=== PATIENT | male | born 1960 | race Caucasian/White ===

== ENCOUNTER 2021-06-17 10:04 | Emergency (ER) | payer OTHER, SELFPAY ==
[2021-06-17] VITALS (7 sets, daily range): BP systolic 136–147; BP diastolic 99–107; PULSE 91–125; RESP 14–21; TEMP 36.4; O2SAT 91–98
--- NOTE | ~2021-06-17 | CT_ITS ---
EXAMINATION: CT brain wo con DATE: 06/17/2021 10:25 INDICATION: Seizure. History of traumatic brain injury with epilepsy. TECHNIQUE: Computed tomography (CT) of the head was performed without intravenous contrast. The dose- length product was 983.67 mGy-cm. Automated exposure control and iterative reconstruction technique w ere employed. COMPARISON: CT dated 02/28/2019 FINDINGS: There is a large chronic left MCA distribution infarction with encephalomalacia. There is a chronic left thalamic infarction. There is intracranial atherosclerosis. No ventriculomegaly or midl ine shift. No acute infarction, hemorrhage or mass. Paranasal sinuses and mastoids are pneumatized. N o depressed skull fractures. There is a chronic left parietal skull defect. There are scattered mild periventricular and subcortical white matter changes, most likely related to small vessel ischemic di sease (microangiopathy). IMPRESSION: 1. No acute intracranial abnormality. Reviewed, dictated and finalized at location A.
--- NOTE | ~2021-06-17 | XR_ITS ---
XR chest 1V portable 06/17/2021 10:41 Indication: Seizure. Altered mental status. Procedure: AP portable chest Comparison: Comparison to multiple prior studies sequentially, with oldest reviewed study dated 07/14. 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 Stable car diomediastinal silhouette. No acute focal pneumonia, edema or effusion. No acute osseous abnormality. Impression: 1: No acute cardiopulmonary disease. Reviewed, dictated and finalized at location A. Impression: 1: No acute cardiopulmonary disease.
--- NOTE | 2021-06-17 10:11 | ECG_ITS ---
Measurements Intervals [place] Rate: 108 P: 37 AL: 163 QRS: 38 QRSD: 118 T: 55 QT: 333 QTc: 448 Interpretive Statements SINUS TACHYCARDIA INCOMPLETE RIGHT BUNDLE BRANCH BLOCK [90+ ms QRS DURATION, TERMINAL R IN V1/V2, 40+ ms S IN I/aVL/V4/V5/V6] ABNORMAL ECG COMPARED TO ECG 09/26/2018 23:16:28 SINUS TACHYCARDIA NOW PRESENT INCOMPLETE RIGHT BUNDLE-BRANCH BLOCK NOW PRESENT Electronically Signed On 06-17-2021 11:25:14 CDT by Abdifatah Kenney M.D.
--- NOTE | 2021-06-17 10:23 | PC.NURSE ---
Patient to radiology.
[2021-06-17 10:48] LABS: Basophils Absolute Auto 0.1 K/mm3 (0.0-0.1); Basophils Percent Auto 0.6 % (0.2-1.2); Eosinophils Absolute Auto 0.1 K/mm3 (0-0.3); Eosinophils Percent Auto 0.8 % (0-4.4); Hemoglobin 14.7 g/dL (14.0-18.0); Immature Granulocyte Absolute 0.03 K/mm3 (0.00-0.031); Immature Granulocyte Percent A 0.4 % (0-0.5); Lymphocytes Absolute Auto 1.23 K/mm3 (0.9-3.2); Lymphocytes Percent Auto 14.8 % (18.3-44.2); Mean Corpuscular HGB Conc 33.4 g/dl (32-36); Mean Corpuscular Hemoglobin 29.9 pg (26-34); Mean Corpuscular Volume 89.4 fl (80-100); Mean Platelet Volume 9.7 fl (7.4-10.4); Monocytes Absolute Auto 0.6 K/mm3 (0.1-0.6); Monocytes Percent Auto 7.7 % (2.6-8.5); Neutrophils Absolute Auto 6.3 K/mm3 (1.3-6.7); Neutrophils Percent Auto 75.7 % (45.5-73.1); Platelet Count Result 245 k/mm3 (150-375); Red Blood Count 4.92 M/mm3 (4.6-6.20); Red Cell Distribution Width 12.6 % (11.5-14.5); White Blood Count 8.3 K/mm3 (4.5-10.0)
[2021-06-17] MEDS: SODIUM CHLORIDE 0.9% IV 1,000 ML 999 ML IV CONT (10:54)
[2021-06-17 11:01] LABS: Alanine Aminotransferase 32 U/L (4-50); Albumin Level 4.4 g/dL (3.5-5.1); Alkaline Phosphatase 74 U/L (38-126); Ammonia 10 umol/L (9-30); Anion Gap 9 mmol/L (8-16); Aspartate Amino Transferase 29 U/L (17-59); Bilirubin,Total 0.4 mg/dL (0.2-1.3); Blood Urea Nitrogen 11 mg/dL (9-20); Calcium 8.9 mg/dL (8.4-10.2); Carbon Dioxide 27 mmol/L (22-30); Chloride 101 mmol/L (98-107); Creatine Kinase 104 U/L (55-170); Estimated Glomerular Filt Rate > 60; Glucose 133 mg/dL (65-110); Potassium 3.9 mmol/L (3.4-5.0); Sodium 137 mmol/L (137-145)
[2021-06-17 11:31] LABS: Add Urine Microscopic? YES; Appearance Urine Clear (Clear); Bilirubin Urine Negative (Negative); Blood Urine Negative (Negative); Color Urine Yellow (Yellow); Glucose Urine UA Negative (Negative); Ketones Urine Negative (Negative); Leukocyte Esterase Ur Negative LEU/UL (Negative); Mucus Urine Rare /lpf; Nitrate Urine Negative (Negative); Protein Urine Negative (Negative); RBC Urine 0-2 /hpf (0-2); Specific Grav Ur 1.021 (1.001-1.035); Urobilinogen Urine Negative mg/dL (<2.0); WBC Urine 0-3 /hpf
[2021-06-17 11:43] LABS: Amphetamine Screen Urine Negative (Negative); Barbiturate Screen Urine Negative (Negative); Benzodiazepines Screen Urine Negative (Negative); Cannabinoid Screen Urine Negative (Negative); Cocaine Screen Urine Negative (Negative); Methadone Screen Urine Negative (Negative); Opiate Screen Urine Negative (Negative); Phencyclidine Screen Urine Negative (Negative)
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
== END 2021-06-17 14:07 ==
PROVIDERS: Emergency Provider Emergency Medicine; PCP Family Medicine
DX: R41.82 Altered mental status, unspecified (principal); Z87.820 Personal history of traumatic brain injury; Z87.440 Personal history of urinary (tract) infections; Z87.891 Personal history of nicotine dependence; R00.0 Tachycardia, unspecified; I45.10 Unspecified right bundle-branch block; Z79.899 Other long term (current) drug therapy
CPT/HCPCS: 36415; 70450; 71045; 80053; 80307; 81001; 82140; 82550; 85025; 93005; 96360; 99284; J7030

== ENCOUNTER 2023-03-18 19:02 | Emergency (ER) | payer MEDICARE, MEDICAID, SELFPAY ==
[2023-03-18 19:07] VITALS: BP 199/118; PULSE 79; RESP 16; TEMP 37; O2SAT 97
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
[2023-03-18 20:55] VITALS: BP 164/118; PULSE 74; RESP 19; TEMP 36.5; O2SAT 96
== END 2023-03-18 21:44 ==
PROVIDERS: Emergency Provider Emergency Medicine; PCP Hospitalist
DX: T24.211A Burn of second degree of right thigh, initial encounter (principal); T31.0 Burns involving less than 10% of body surface; Z87.440 Personal history of urinary (tract) infections; Z87.820 Personal history of traumatic brain injury; Z87.891 Personal history of nicotine dependence; X10.0XXA Contact with hot drinks, initial encounter
CPT/HCPCS: 99282